=== PATIENT | male | born 1965 | race Two or more races ===

== ENCOUNTER 2017-02-12 12:10 | Emergency (ER) | payer MEDICAID ==
[~2017-02-12] VITALS: Ht 170.2 cm; Wt 81.6 kg
--- NOTE | 2017-02-12 12:25 | NUR ---
[id number] FROM HOME: UNCONTROLLED BLEEDING VIET AV SHUNT S/P HD TODAY. SITE SECURED TIGHTLY TO STOP BLEEDING. A/OX 4. BREATHING EVEN AND UNLABORED. NO SOB. VITALS STABLE. SAFETY AND COMFORT MEASURES IN PLACE. AWAITING MD ORDERS .
[2017-02-12 13:36] VITALS: BP 151/100
== END 2017-02-12 13:38 | disposition home or self-care (01) ==
LOC: ER 12:11
DX: T82.9XXA Unspecified complication of cardiac and vascular prosthetic device, implant and graft, initial encounter (principal); I10 Essential (primary) hypertension; Z99.2 Dependence on renal dialysis
CPT/HCPCS: 99283; A4606; A6402; Z7610

== ENCOUNTER 2017-06-30 06:22 | Inpatient (IN) | payer BC, MEDICAID ==
[2017-06-30] VITALS (17 sets, daily range): BP systolic 106–187; BP diastolic 85–114
[~2017-06-30] VITALS: Ht 172.7 cm; Wt 78.5 kg
--- NOTE | 2017-06-30 06:39 | NUR ---
PT BIB SELF, PT C/O HEADACHE X 3 DAYS PT DENIES TRAUMA OR INJURY. PT AOX3 RR EVEN AND UNLABORED. NO SOB NOTED. NAD NOTED. NO ND AT THIS TIME GOWNED AND PLACED ON MONITOR. PT STATES LAST HD WAS WEDNESDAY, INCOMPLETED HD TODAY D/T HEADACHE. DR. ZAMBRANO AT BEDSIDE FOR EVAL.
[2017-06-30] MEDS ORDERED: METOCLOPRAMIDE HCL 10 MG/2 ML VIAL ONE (06:51)
[2017-06-30] MEDS ORDERED: METOCLOPRAMIDE HCL 10 MG/2 ML VIAL IV ONE (07:00)
--- NOTE | 2017-06-30 07:02 | NUR ---
PT TO CT. REPORT GIVEN TO AMY PALU FOR ZAINAB.
--- NOTE | 2017-06-30 07:03 | NUR ---
RECEIVED REPORT FOR ZAINAB.
[2017-06-30 07:06] LABS: BASOPHILS % (AUTO) 0.6 % (0.0-2.0); EOSINOPHILS % (AUTO) 3.5 % (0.0-6.0); HEMATOCRIT 34 % (39-51); HEMOGLOBIN 11.7 g/dL (13.5-17.5); LYMPHOCYTES # (AUTO) 0.5 /CMM (0.8-4.8); LYMPHOCYTES % (AUTO) 13.4 % (20.0-44.0); MEAN CORPUSCULAR HGB CONC 35 g/dl (31.0-36.0); MEAN CORPUSCULAR VOLUME 90 fL (80-96); MONOCYTES # (AUTO) 0.4 /CMM (0.1-1.30); MONOCYTES % (AUTO) 12.1 % (2.0-12.0); NEUTROPHILS # (AUTO) 2.6 /CMM (1.8-8.9); NEUTROPHILS % (AUTO) 70.4 % (43.0-81.0); PLATELET COUNT (AUTO) 115 /CMM (150-450); RDW COEFFICIENT OF VARIATION 13.6 (11.5-15.0); RED BLOOD CELL COUNT(AUTO) 3.73 MIL/uL (4.5-6.0); WHITE BLOOD COUNT (AUTO) 3.7 K/uL (4.3-11.0)
--- NOTE | 2017-06-30 07:12 | NUR ---
PATIENT RETURNED FROM CT IN STABLE CONDITION.
[2017-06-30 07:20] LABS: ALBUMIN 3.9 g/dL (3.4-5.0); BILIRUBIN,TOTAL 0.5 mg/dL (0.2-1.0); CALCIUM, SERUM 9.1 mg/dL (8.5-10.1); CREATININE 5.4 mg/dL (0.6-1.3); POTASSIUM 3.9 mmol/L (3.5-5.1); TOTAL PROTEIN, SERUM 7.6 g/dL (6.4-8.2)
--- NOTE | 2017-06-30 07:49 | NUR ---
PAGED DR HUBER FOR CONSULT
[2017-06-30] MEDS ORDERED: LEVETIRACETAM (500MG) 1,000 MG in IV NS 0.9% 100 ML IV SCH (08:00)
[2017-06-30 08:06] LABS: INR 0.96 (0.87-1.13)
--- NOTE | 2017-06-30 09:10 | NUR ---
CALLED [facility] FOR ADMISSION
--- NOTE | 2017-06-30 09:35 | NUR ---
CALLED [facility] AGAIN
--- NOTE | 2017-06-30 10:13 | NUR ---
REPORT GIVEN TO SUSHANT REYES FOR ZIANAB UPON ADMISION
--- NOTE | 2017-06-30 10:36 | NUR ---
SHINGLE CATCHER RECEIVED PATIENT FROM ER ON A GURNEY. PATIENT WAS ABLE TO STAND UP OUT OF GURNEY AND TRANSFER SELF TO BED WITH STANDBY ASSISTANCE. STABLE VITAL SINGS. 610 HEADACHE AT THIS TIME. SINUS RHYTHM ON MONITOR. WILL CONTINUE TO MONITOR AND PROVIDE CARE.
[2017-06-30] MEDS: SIMVASTATIN 20 MG TABLET PO SCH ×2 (11:00→21:34)
[2017-06-30] MEDS ORDERED: LABETALOL HCL IV 100MG VIAL IV PRN (11:00)
[2017-06-30] MEDS: BLOOD SUGAR DIAGNOSTIC 1 EACH STRIP IN SCH ×3 (12:00→21:35)
[2017-06-30] MEDS ORDERED: BLOOD SUGAR DIAGNOSTIC 1 EACH STRIP IN SCH (12:00)
[2017-06-30] MEDS: ACETAMINOPHEN 325 MG TABLET PO PRN ×2 (15:04→22:08)
[2017-06-30] MEDS: MORPHINE SULFATE INJ 4 MG/ML DISP.SYRIN IV PRN ×2 (18:42→22:42)
[2017-06-30] MEDS: hydrALAZINE HCL IV 20 MG VIAL IV PRN (20:04)
[2017-06-30] MEDS: LEVETIRACETAM (500MG) 500 MG in IV NS 0.9% 100 ML IV SCH (21:34)
[2017-07-01] VITALS (23 sets, daily range): BP systolic 131–178; BP diastolic 75–101
--- NOTE | 2017-07-01 | NUR ---
EXCHANGE OPERATOR - PT. WAS ADM.HYDRALAZINE AT 20:40 PM, LABELOLOL AT 21:44 & MORPHINE SULFATE-ONE MG SLOW IVP AT 22:40 FOR COMFORT. TYLENOL 650MG/PO WAS ALSO ADM. AT CHANGE OF SHIFT BY PREPRESS PROOFER. ORDERS TO KEEP SBP'S <160MMHG. LUE AV FISTULA HAS GOOD BRUIT/GOOD THRILL. WAS AT BS AT START OF SHIFT, BUT WENT HOME. STATUS UPDATE GIVEN TO PT. & IN [facility] BY JOSE MANUEL VAZQUEZ/PHYSICIAN LIAISON. PT.IS ANURIC, BUT ATTEMPTING TO USE URINAL. PT.IS ON R/A & IS SATTING >93%. CONT.POC.
[2017-07-01 04:39] LABS: BASOPHILS % (AUTO) 0.4 % (0.0-2.0); HEMATOCRIT 31 % (39-51); HEMOGLOBIN 10.5 g/dL (13.5-17.5); LYMPHOCYTES # (AUTO) 0.5 /CMM (0.8-4.8); LYMPHOCYTES % (AUTO) 11.5 % (20.0-44.0); MEAN CORPUSCULAR HGB CONC 35 g/dl (31.0-36.0); MEAN CORPUSCULAR VOLUME 91 fL (80-96); MONOCYTES # (AUTO) 0.4 /CMM (0.1-1.30); MONOCYTES % (AUTO) 9.4 % (2.0-12.0); NEUTROPHILS # (AUTO) 3.4 /CMM (1.8-8.9); NEUTROPHILS % (AUTO) 77.7 % (43.0-81.0); PLATELET COUNT (AUTO) 106 /CMM (150-450); RDW COEFFICIENT OF VARIATION 13.6 (11.5-15.0); RED BLOOD CELL COUNT(AUTO) 3.33 MIL/uL (4.5-6.0); WHITE BLOOD COUNT (AUTO) 4.4 K/uL (4.3-11.0)
[2017-07-01 04:56] LABS: POTASSIUM 5.6 mmol/L (3.5-5.1)
[2017-07-01 05:00] LABS: CREATININE 8.4 mg/dL (0.6-1.3)
--- NOTE | 2017-07-01 06:30 | NUR ---
UI SOFTWARE ENGINEER - PT. SHOWS NO S/S OF DISTRESS/DISCOMFORT. PT. SLEPT FOR MOST PART OF THE NIGHT. ORDERS FOR F/U: CT/HEAD W/O CONTRAST WAS PHONED TO RADIOLOGY. WILL BE DONE AT 8AM. PT. SLEPT FOR MOST PART OF NIGHT. PT. DID REFUSE BEDBATH & STATED WILL WAIT FOR . PT'S SBP'S ARE IN THE 120-150'S. HR/SB/SR/NO ECTOPY. AFEBRILE. SKIN - INTACT. CONT. POC.
--- NOTE | 2017-07-01 07:30 | NUR ---
NURSING PROGRAM MANAGER RECEIVED PATIENT AWAKE ON BED ON ROOM AIR SATURATING 99% AFEBRILE NO SLURRING OF SPEECH, NO FACIAL ASYMMETRY STROKE ASSESSMENT RENDERED ABLE TO CONSUME HIS SHARE OF MEAL WITH GOOD APPETITE MONITORED BLOOD SUGAR OFFERED URINAL MONITORED CLOSELY
[2017-07-01] MEDS: BLOOD SUGAR DIAGNOSTIC 1 EACH STRIP IN SCH ×4 (07:33→22:33)
--- NOTE | 2017-07-01 08:10 | NUR ---
FIREWORKS DISPLAY SPECIALIST SEEN AND EXAMINED BY DR. BANSAL WITH NEW ORDERS MADE AND CARRIED OUT
--- NOTE | 2017-07-01 08:17 | NUR ---
PROFESSIONAL SKATEBOARDER CALLED UP CT DEPARTMENT TO FOLLOW UP REPEAT CT OF PATIENT, CT WILL TAKE PATIENT ONCE THEY'RE AVAILABLE PER CT STAFF CT DEPARTMENT STILL BUSY WITH ER PATIENTS
[2017-07-01] MEDS: AMLODIPINE BESYLATE 10 MG TABLET PO SCH (08:20)
[2017-07-01] MEDS: hydrALAZINE HCL 25 MG TABLET PO SCH ×3 (08:22→20:13)
[2017-07-01] MEDS: LEVETIRACETAM (500MG) 500 MG in IV NS 0.9% 100 ML IV SCH ×2 (09:42→20:19)
[2017-07-01] MEDS: hydrALAZINE HCL IV 20 MG VIAL IV PRN (09:42)
--- NOTE | 2017-07-01 12:05 | NUR ---
SHOE PLANNER CT HEAD WITHOUT CONTRAST DONE CTA BRAIN NOT YET DONE, AWAITING DR. CARRILLO TO REPLY IF CTA WILL PUSH THROUGH SINCE CREATININE OF PATIENT IS 8.4
--- NOTE | 2017-07-01 13:26 | NUR ---
FILM COATER PATIENT IS ON GOING DIALYSIS, WILL GIVE HYDRALAZINE PO LATER WILL MONITOR BLOOD PRESSURE BS -152, DR. BANSAL IS INFORMED PATIENT HAS NO APPETITE AT THE MOMENT
--- NOTE | 2017-07-01 14:25 | NUR ---
PLATE CUTTER REPORT GIVEN TO ANTHONY REYES
--- NOTE | 2017-07-01 14:30 | NUR ---
RN NOTES PT RECEIVED ON BED,POLISH SPEAKING , ALERT/ ORIENTED, RECEIVING DIALYSIS AT THIS TIME, ON RA , NO SOB NOTED, TF=329/92, HR 62, SR UP x3, BED LOCKED AND IN LOWEST POSITION , CALL LIGHT WITHIN EASY REACH, WILL CONTINUE TO MONITOR .
--- NOTE | 2017-07-01 14:30 | NUR ---
RN NOTES PT RECEIVING HD , HYDRALAZINE HELD , BP =132/79
--- NOTE | 2017-07-01 17:00 | NUR ---
RN NOTES REPORT GIVEN TO JESUS REYES ON .
--- NOTE | 2017-07-01 18:15 | NUR ---
RN NOTES PT TRANSFERRED TO TELE BED 310 , IN STABLE CONDITION .
--- NOTE | 2017-07-01 18:30 | NUR ---
TRANSFER FROM MEDICAL AUDITOR NOTES RECEIVED PT FROM SHINMEDICAL AUDITOR WELSH SPEAKING , ALERT/ ORIENTED. ON RA , NO SOB NOTED, IE=664/99 HR 76, SR UP x3, DENIES ANY PAIN OR DISTRESS.ON TELE WITH SR HR 77.BED LOCKED AND IN LOWEST POSITION ,ORIENTED TO THE UNIT. CALL LIGHT WITHIN EASY REACH, WILL CONTINUE TO MONITOR .
--- NOTE | 2017-07-01 19:25 | NUR ---
RN NOTES RECEIVED PT AWAKE, HOB ELEVATED, ON ROOM AIR AND TOLERATED WELL. PT ALERT AND ORIENTED X3, VERBALIZING TOLERABLE HEADACHE AT THIS TIME. IV ACCESS ON RIGHT FOREARM AND HAND PATENT AND INTACT. PLAN OF CARE DISCUSSED WITH THE PT. SAFETY MEASURES AND FALL PRECAUTION OBSERVED. WILL CONTINUE TO MONITOR PT.
[2017-07-01] MEDS: ONDANSETRON HCL/PF 4 MG/2 ML VIAL IVP PRN (20:14)
[2017-07-01] MEDS: SIMVASTATIN 20 MG TABLET PO SCH (22:32)
[2017-07-01] MEDS: ACETAMINOPHEN 325 MG TABLET PO PRN (22:33)
[2017-07-02] VITALS (7 sets, daily range): BP systolic 148–165; BP diastolic 79–107
[2017-07-02] MEDS: hydrALAZINE HCL IV 20 MG VIAL IV PRN ×3 (02:26→16:32)
[2017-07-02] MEDS: MORPHINE SULFATE INJ 4 MG/ML DISP.SYRIN IV PRN ×4 (02:53→22:04)
[2017-07-02] MEDS: hydrALAZINE HCL 25 MG TABLET PO SCH ×3 (05:31→20:47)
[2017-07-02] MEDS: BLOOD SUGAR DIAGNOSTIC 1 EACH STRIP IN SCH ×4 (06:41→21:06)
--- NOTE | 2017-07-02 06:55 | NUR ---
RN NOTES BLOOD PRESSURE MONITORED OVERNIGHT. PT STILL VERBALIZING OF HEADACHE. PT VOMITED ONCE MANAGED WITH ZOFRAN. SAFETY MEASURES AND FALL PRECAUTION OBSERVED. BLOOD SUGAR CONTROLLED. TELEMONITOR READS SINUS RHYTHM WITH 1ST DEGREE AVB. WILL ENDORSE TO MORNING RN FOR CONTINUITY OF CARE.
--- NOTE | 2017-07-02 07:21 | NUR ---
SPOKE WITH RN PATIENT HAD DIALYSIS DONE JUST YESTERDAY. RN WILL CONTACT NEPHROLOGY TO SEE WHEN NEXT SCHEDULED DIALYSIS WILL BE DONE. DIALYSIS MUST BE DONE WITHIN 24 HOURS AFTER CTA BRAIN BECAUSE CREATININE IS 8.4.
--- NOTE | 2017-07-02 07:30 | NUR ---
STOREHOUSE CLERK OPENING NOTES PATIENT IS COMPLAINING OF HEADACHE. ADMINISTERED TYLENOL 650MG ORAL. WILL REASSES HEADACHE. BEDSIDE RAILS ARE UPX2. BED IS LOCKED AND LOWERED. CALL LIGHT IS WITHIN REACH. IV LINE IS INTACT AND PATENT. WILL CONTINUE TO MONITOR.
[2017-07-02] MEDS: ACETAMINOPHEN 325 MG TABLET PO PRN (07:38)
[2017-07-02] MEDS: LEVETIRACETAM (250 MG) 250 MG TABLET PO SCH ×2 (08:34→20:47)
[2017-07-02] MEDS: AMLODIPINE BESYLATE 10 MG TABLET PO SCH (08:34)
--- NOTE | 2017-07-02 14:46 | NUR ---
PATIENT TAKEN DOWN TO CT OF THE BRAIN WITH CONTRAST.
[2017-07-02] MEDS ORDERED: IOHEXOL-350 100 ML VIAL IV ONE (14:49)
--- NOTE | 2017-07-02 16:32 | NUR ---
GAVE APREZOLINE 20MG. BLOOD PRESSURE 148/79. GOAL IS TO MAINTAIN SBP < 140.
--- NOTE | 2017-07-02 18:18 | NUR ---
MS RN CLOSING NOTES PATIENT IS IN STABLE CONDITION. IN NO APPARENT DISTRESS. BEDSIDE RAILS ARE UPX2. BED IS LOCKED AND LOWERED. IV LINE IS INTACT AND PATENT. CALL LIGHT IS WITHIN REACH. WILL ENDORSE CARE TO HOME HEALTH LPN NURSE FOR ZAINAB.
[2017-07-02] MEDS: ONDANSETRON HCL/PF 4 MG/2 ML VIAL IVP PRN (18:38)
--- NOTE | 2017-07-02 19:25 | NUR ---
MS/RN OPENING NOTES PATIENT IN BED, ALERT, ORIENTED X3, ABLE TO VERBALIZE NEEDS, RESPIRATIONS EVEN AND UNLABORED, SAMOAN SPEAKING BUT CAN UNDERSTAND MALAY, SKIN WARM TO TOUCH, LEFT AV FISTULA, OBSERVE SITE W/ NO BLEEDING,RIGHT AC IV SITE AND RIGHT HAND GAUGE 20, SITE NO S/S OF INFILTRATION. RECEIVED ENDORSEMENT FROM AM RN FOR ZAINAB. CALL LIGHTS WITHIN REACH, BED IN LOCK POSITION. DENIES PAIN. NO GUARDING AND NO GRIMACE. WILL CONTINUE TO MONITOR.
--- NOTE | 2017-07-02 20:00 | NUR ---
MS/RN OPENING NOTES PATIENT IN BED, ALERT, ORIENTED X3, ABLE TO VERBALIZE NEEDS, FAMILY AT BED SIDE, NO GUARDING OBSERVE, COOPERATIVE TO CARE, RESPIRATIONS EVEN AND UNLABORED SKIN INTACT AND DRY. RECEIVE REPORT FROM AM RN FOR ZAINAB, WILL CONTINUE TO MONITOR, CALL LIGHTS WITHIN REACH, BED IN LOCK POSITION.
[2017-07-02] MEDS: SIMVASTATIN 20 MG TABLET PO SCH (21:14)
--- NOTE | 2017-07-02 22:09 | NUR ---
MS/RN NOTES PATIENT REPORTED HEADACHE, GRIMACE AND REQUESTED FOR PAIN MEDICATION, MORPHINE.25ML/IG, B/P CHECK AT 145/70. WILL MONITOR., BS CHECK, REPORTED HAD EATEN SOME SNACKS, WILL MONITOR.
[2017-07-03] VITALS (9 sets, daily range): BP systolic 140–166; BP diastolic 78–105
[2017-07-03] MEDS: hydrALAZINE HCL 25 MG TABLET PO SCH ×3 (05:06→20:34)
[2017-07-03] MEDS: BLOOD SUGAR DIAGNOSTIC 1 EACH STRIP IN SCH ×4 (06:04→21:15)
--- NOTE | 2017-07-03 06:35 | NUR ---
MS/RN CLOSING NOTES PATIENT IN BED, ALERT, ORIENTED X3, ABLE TO SLEEP DURING THE NIGHT, REPORTED TOLERABLE PAIN, RESPIRATIONS EVEN AND UNLABORED, SKIN WARM TO TOUCH. RESTING COMFORTABLY IN BED. BLOOD PRESSURE CHECK AT 143/92, ON HD TODAYPER MD ORDER TO KEEP SBP<160. WILL ENDORSE TO AM RN FOR ZAINAB.
--- NOTE | 2017-07-03 07:32 | NUR ---
RN OPENING NOTES PATIENT IN BED RESTING, A/OX3, ABLE TO MAKE NEEDS KNOWN. NO ACUTE DISTRESS, NO SOB NOTED. DENIED PAIN OR DISCOMFORT. NO HEADACHE, NO BLURRED VISION, SPEECH IS CLEAR, NO FACIAL DROOP. IV SITE INTACT AND PATENT. KEPT PATIENT SAFE AND COMFORTABLE. BED IN LOW/LOCKED POSITION, SIDERAILS UPX2, CALL LIGHT IN REACH, WILL CONTINUE TO MONITOR ACCORDINGLY
[2017-07-03] MEDS: LEVETIRACETAM (250 MG) 250 MG TABLET PO SCH ×2 (08:11→20:33)
[2017-07-03] MEDS: AMLODIPINE BESYLATE 10 MG TABLET PO SCH ×2 (08:12→08:22)
--- NOTE | 2017-07-03 08:25 | NUR ---
RN NOTES VERIFIED WITH ISIDRA DAVIDSON RN. PATIENT IS SCHEDULED FOR DIALYSIS TODAY. BP MEDS HELD.
[2017-07-03] MEDS: MORPHINE SULFATE INJ 4 MG/ML DISP.SYRIN IV PRN ×4 (08:34→21:14)
--- NOTE | 2017-07-03 13:10 | NUR ---
RN NOTES CALLED DR CARRILLO FOR PATIENT'S DISCHARGE CLEARANCE, UNABLE TO REACH HER, LEFT VOICEMAIL.
--- NOTE | 2017-07-03 13:15 | NUR ---
RN NOTES HEMODIALYSIS ONGOING. PATIENT IN STABLE CONDITION.
[2017-07-03] MEDS: ACETAMINOPHEN 325 MG TABLET PO PRN ×2 (14:55→23:38)
--- NOTE | 2017-07-03 15:29 | NUR ---
RN NOTES SPOKE TO DR BANSAL AND TOLD HIM THAT DR CARRILLO DID NOT WRITE ANY DISCHARGE CLEARANCE ON PROGRESS NOTES, AND ALSO CALLED DR CARRILLO BUT COULD NOT REACH HER AND LEFT A VOICEMAIL REGARDING THE DISCHARGE CLEARANCE. ALSO TOLD DR BANSAL ABOUT PATIENT NOT FEELING WELL, AND STILL HAS HEADACHES. PER MD, MONITOR PATIENT, OK TO DISCHARGE IF SYMPTOMS GETS BETTER. HOWEVER, CAN STAY 1 MORE DAY IF SYMPTOMS DOES NOT GET BETTER.
--- NOTE | 2017-07-03 16:03 | NUR ---
RN NOTES HEMODIALYSIS COMPLETED. OUTPUT 3000ML. PATIENT IN STABLE CONDITION.
[2017-07-03] MEDS: hydrALAZINE HCL IV 20 MG VIAL IV PRN ×2 (16:35→23:38)
--- NOTE | 2017-07-03 19:24 | NUR ---
RN CLOSING NOTES PATIENT IN STABLE CONDITION. ALL NEEDS ATTENDED AND PROVIDED. KEPT PATIENT SAFE AND COMFORTABLE. BEDIN LOW/LOCKED POSITION, SIDERAILS UPX2, CALL LIGHT IN REACH. ENDORSED TO NIGHT RN FOR ZAINAB.
--- NOTE | 2017-07-03 19:40 | NUR ---
RN INITIAL NOTES: RECEIVED REPORT FROM FARIHA REYES, PT IN BED, AWAKE, A/O X3 SINHALA SPEAKING, ON RA RESPIRATION EVEN AND UNLBAORED, S/P HD TODAY WITH 3L OUTPUT, VIET HD ACCESS DRESSING IN PLACED. IV ACCESS PATENT AND FLUSHING WELL, ON HL. PT BEEN C/O PERSISTENT HEAD ACHE, AWARE, ALSO BLOOD PRESSURE BEEN ELEVATED DESPITE GIVING PRN IV BP MEDICATIONS, MD AWARE. DISCUSSED WITH PT REGARDING PLAN OF CARE, USES OFFICE CLEANER, A SINHALA SPEAKING RN, PT AGREE AND UNDERSTAND, FAMILY AT BED SIDE, SAFETY PRECAUTIONS FOR FALL INITIATED, CALL LIGHT IN REACH, WILL CONTINUE MONITORING PT
[2017-07-03] MEDS: SIMVASTATIN 20 MG TABLET PO SCH (21:15)
--- NOTE | 2017-07-03 21:16 | NUR ---
prn morhine: pt c/o 09/24 head ache requesting for morphine, translated by georgian rn, prn morphine 1mg ivp administered to the pt at this time. will continue monitoring and reassessing pt
--- NOTE | 2017-07-03 21:31 | NUR ---
bs 157: pt's blood sugar 157, informed epic front desk receptionist director diversity, relayed to director diversity, per director diversity its okay, no further orders received, no insulin coverage ordered.
--- NOTE | 2017-07-03 23:42 | NUR ---
PRN HYDRALAZINE IV AND TYLENOL: PT'S BP 166/103 HR 83, CALLED DISPUTE RESOLUTION ANALYST ON [facility], SHE STATED OKAY TO GIVE THIS PRN APRESOLINE IV, IF ALLOWED TO BE GIVEN IN OUR UNIT, VERIFIED WITH WATER TAXI OPERATOR NURSE AND PRINTED HAND OUT FOR IV MEDICATION THAT CAN BE GIVEN IN MEDSURG UNIT, THIS MEDICATION FOR BP CAN BE GIVEN IN THE MS UNIT, ADMINISTERED AT THIS TIME. ALSO PT C/O 3/10 HEAD ACHE REQUESTING FOR TYLENOL, PRN TYLENOL 650 MG TAB PO ADMINISTERED TO THE PT AT THIS TIME.
[2017-07-04] VITALS (7 sets, daily range): BP systolic 145–174; BP diastolic 80–104
[2017-07-04] MEDS: MORPHINE SULFATE INJ 4 MG/ML DISP.SYRIN IV PRN (02:44)
--- NOTE | 2017-07-04 02:45 | NUR ---
PRN MORPHINE: PT C/O SO MUCH PAIN 09/24 REQUESTING FOR MORPHINE, PRN MORPHINE 1MG IVP ADMINISTERED TO THE PT AT THIS TIME, WILL CONTINUE TO MONITOR AND REASSESS
[2017-07-04] MEDS: hydrALAZINE HCL 25 MG TABLET PO SCH ×2 (05:00→12:02)
[2017-07-04] MEDS: BLOOD SUGAR DIAGNOSTIC 1 EACH STRIP IN SCH ×2 (05:47→12:02)
--- NOTE | 2017-07-04 05:47 | NUR ---
BS 115: BS 115, NO SLIDING SCALE ORDER PER , BS WNL.
[2017-07-04] MEDS: hydrALAZINE HCL IV 20 MG VIAL IV PRN (06:16)
--- NOTE | 2017-07-04 06:16 | NUR ---
PRN HYDRALAZINE: PT'S BP 159/94 HR 74, GOAL FOR BP IS LESS THAN 160, PRN HYDRALAZINE 20MG IVP ADMINISTERED TO THE PT AT THIS TIME, WILL CONTINUE TO MONITOR AND REASSESS
--- NOTE | 2017-07-04 06:46 | NUR ---
RN CLOSING NOTES: PT IN BED, AWAKE, REMAINS ON RA, DENIES ANY PAIN OR DISCOMFORT AT THIS TIME, IV ACCESS REMAINS PATENT AND FLUSHING WELL, ON HL. VS REMAINS STABLE, NEEDS ATTENDED. SAFETY PRECAUTIONS FOR FALL REMAINS ENGAGED, CALL LIGHT IN REACH. FOR POSSIBLE DC WHEN CLEARED BY NEUROLOGIST. EXIT CARE COMPLETED. WILL ENDORSE TO DAY RN FOR ZAINAB.
--- NOTE | 2017-07-04 07:10 | NUR ---
MS/RN OPENING NOTE PATIENT ALERT AND ORIENTED X3. DENIES SOB. RESPIRATION REGULAR AND UNLABORED. DENIES PAIN. RAC G 18 PATENT AND SALINE LOCKED. BED LOW AND LOCKED. SIDE RAILS UP X2. CALL LIGHT WITHIN REACH. WILL CONTINUE TO MONITOR.
[2017-07-04] MEDS: AMLODIPINE BESYLATE 10 MG TABLET PO SCH (08:17)
[2017-07-04] MEDS: LEVETIRACETAM (250 MG) 250 MG TABLET PO SCH (08:17)
--- NOTE | 2017-07-04 12:22 | NUR ---
MS/RN CLOSING NOTE PATIENT ALERT AND ORIENTED X3. DENIES SOB. O2 SATURATION IN ROOM AIR AT 97%. BREATHING EVEN AND UNLABORED. DENIES PAIN. DISCHARGE INSTRUCTION ARE PROVIDED TO THE PATIENT AND (LEYLA) AND THEY VERBALIZED UNDERSTANDING. PATIENT LEFT THE HOSPITAL IN STABLE CONDITION AND WITH .
== END 2017-07-04 12:20 | disposition home or self-care (01) | DRG 64 ==
LOC: ER 06:22 → ICU 10:00 → TELE 07-01 18:06 → MED 07-02 08:46
PROVIDERS: ADMIT Internal Medicine; ATTEND Internal Medicine
PROC: 30233R1 Transfusion of Nonautologous Platelets into Peripheral Vein, Percutaneous Approach (ICD-10-PCS; 2017-06-30)
PROC: 5A1D70Z Performance of Urinary Filtration, Intermittent, Less than 6 Hours Per Day (ICD-10-PCS; principal; 2017-07-01)
PROC: 5A1D70Z Performance of Urinary Filtration, Intermittent, Less than 6 Hours Per Day (ICD-10-PCS; 2017-07-03)
DX: I62.02 Nontraumatic subacute subdural hemorrhage (principal); N18.6 End stage renal disease; D69.6 Thrombocytopenia, unspecified; I12.0 Hypertensive chronic kidney disease with stage 5 chronic kidney disease or end stage renal disease; E11.22 Type 2 diabetes mellitus with diabetic chronic kidney disease; E87.5 Hyperkalemia; E78.5 Hyperlipidemia, unspecified; Q78.9 Osteochondrodysplasia, unspecified; F10.20 Alcohol dependence, uncomplicated; Z99.2 Dependence on renal dialysis; D64.9 Anemia, unspecified
CPT/HCPCS: 36415; 70450-TC; 70496-TC; 71045-TC; 80048-TC; 80053-TC; 82962-TC; 85025-TC; 85385-TC; 85610-TC; 85730-TC; 86850-TC; 87081-TC; 90935-TC; 92611-TC; A4606; J0360; J1953; J2270; J2405; J2765; J3490; J7030; J7050; P9016-BL; P9034-BL; Q9967; Z7610

== ENCOUNTER 2018-05-20 04:05 | Emergency (ER) | payer BC, MEDICAID ==
[~2018-05-20] VITALS: Ht 170.2 cm; Wt 81.2 kg
[2018-05-20] MEDS ORDERED: ACETAMINOPHEN ES 500 MG TABLET ONE (04:17)
[2018-05-20] MEDS ORDERED: CLONIDINE HCL 0.1 MG TABLET ONE (04:17)
[2018-05-20] MEDS ORDERED: ACETAMINOPHEN 325 MG TABLET PO ONE (04:30)
[2018-05-20] MEDS ORDERED: CLONIDINE HCL 0.1 MG TABLET PO ONE (04:30)
[2018-05-20 05:22] VITALS: BP 159/96
== END 2018-05-20 05:25 | disposition home or self-care (01) ==
LOC: ER 04:05
DX: I10 Essential (primary) hypertension (principal); J06.9 Acute upper respiratory infection, unspecified; E11.9 Type 2 diabetes mellitus without complications; Z98.890 Other specified postprocedural states
CPT/HCPCS: 71045-TC